=== PATIENT | male | born 2000 | race African-American/Black ===

== ENCOUNTER 2021-05-17 06:33 | Emergency (ER) | payer OTHER ==
[~2021-05-17] VITALS: Ht 180.3 cm; Wt 93.9 kg
[2021-05-17 06:34] VITALS: BP 134/72
[2021-05-17] MEDS ORDERED: CEFD1CAP8 PO (06:42)
[2021-05-17] MEDS ORDERED: IBUP80TA PO (06:42)
--- NOTE | 2021-05-17 07:51 | REPVR ---
PROCEDURE INFORMATION: Exam: US Scrotum and Artery or Vein of the Abdominal and/or Reproductive Organs, Limited Scrotum Exam date and time: 05/17/2021 7:12 AM Age: 20 years old Clinical indication: Inflammation; Scrotum; Additional info: Left testicular pain and swelling TECHNIQUE: Imaging protocol: Real-time ultrasound of the scrotum. Real-time duplex ultrasound scan of the arterial or venous flow with roldan scale, color Doppler flow and spectral waveform analysis with image documentation. Limited Duplex exam focused of the scrotum. Duplex images required to evaluate for torsion and other vascular conditions. COMPARISON: No relevant prior studies available. FINDINGS: Right testicle: The right testicle is normal in size and homogeneous in echogenicity, measuring 5.5 x 2.6 x 2.7 cm. There is blood flow within the right testicle on color Doppler imaging, symmetric to the contralateral testicle. Normal arterial waveforms are seen within intratesticular arteries in the right testicle, with a peak systolic velocity of 4.8 cm/s and resistive index of 0.64 Left testicle: The left testicle is normal in size and homogeneous in echogenicity, measuring 4.9 x 2.6 x 3.4 cm. There is normal blood flow within the left testicle on color Doppler imaging, symmetric to the contralateral testicle. On pulsed Doppler imaging, arterial Doppler waveforms are seen which are slightly higher velocity and of lower resistance than in the right testicle. The peak systolic velocity ranges from 5.5-7.9 cm/s in the resistive indices are 0.4 and 0.41. Epididymides: The left epididymis appears enlarged and hyperemic, especially prominent in the body and tail of the epididymis the left epididymal head measures 1.4 cm in diameter.. The right epididymal head measures 1.3 cm in diameter. There is no hyperemia of the right epididymis. Scrotum: There is left-sided scrotal wall thickening and hyperemia. There is a small left hydrocele. IMPRESSION: 1. Enlarged and hyperemic left epididymis consistent with left epididymitis. 2. Associated small left hydrocele and left scrotal wall thickening and hyperemia. 3. No evidence of testicular torsion or convincing evidence of orchitis. Electronically signed by: Chantal Giraldo On 05/17/2021 07:50:26 AM
[2021-05-17 10:55] LABS: GC DNA AMPLIFICATION NEGATIVE (NEGATIVE)
[2021-05-17] MEDS ORDERED: CIPR-249 PO (11:05)
[2021-05-17] MEDS ORDERED: CIPROFLOXACIN 500MG TABLET PO ONE (11:05)
[2021-05-17] MEDS ORDERED: KETOROLAC 60MG 2ML VIAL IM ONE (11:10)
== END 2021-05-17 11:28 | disposition home or self-care (01) ==
LOC: M ED 06:33
DX: N45.1 Epididymitis (principal)
CPT/HCPCS: 76870; 81001; 87086; 87661; 93976; 96372; 99282; J1885